=== PATIENT | female | born 1995 | race African-American/Black ===

== ENCOUNTER 2022-01-16 13:56 | Outpatient (REF) | payer MEDICAID, SELFPAY ==
--- NOTE | ~2022-01-16 | US_ITS ---
EXAMINATION: US RETROPERITONEAL LIMITED (RENAL ONLY) CLINICAL INFORMATION: Gross hematuria, left lower quadrant pain. COMPARISON: None TECHNIQUE: Real-time imaging of the kidneys. FINDINGS: RIGHT KIDNEY: 9.7 x 5.5 x 5.0 cm (SAG x AP x TRV). The kidney is normal in size, contour, and echogenicity. Renal cortical thickness is normal. No calculi or focal parenchymal lesions. No hydronephrosis. LEFT KIDNEY: 9.1 x 5.5 x 4.9 cm (SAG x AP x TRV). The kidney is normal in size, contour, and echogenicity. Renal cortical thickness is normal. No calculi or focal parenchymal lesions. No hydronephrosis. US/US renal BI IMPRESSION: Normal renal ultrasound.
== END 2022-01-16 13:57 | disposition home or self-care (01) ==
LOC: HO.US 13:56
PROVIDERS: Visit Provider Internal Medicine
DX: R31.0 Gross hematuria (principal)
CPT/HCPCS: 76775

== ENCOUNTER 2024-10-31 21:46 | Emergency (ER) | payer MEDICAID, SELFPAY ==
[2024-10-31 22:35] VITALS: BP 108/65; PULSE 96; RESP 18; TEMP 36.4; O2SAT 97; BMI 28.5
[2024-10-31] MEDS: Acetaminophen 325 MG TABLET 975 MG PO (23:01)
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
[2024-10-31 23:51] VITALS: BP 108/65; PULSE 96; RESP 18; TEMP 36.4; O2SAT 97
== END 2024-10-31 23:53 | disposition home or self-care (01) ==
PROVIDERS: Emergency Provider Emergency Medicine; PCP Internal Medicine
DX: S09.93XA Unspecified injury of face, initial encounter (principal); Y04.0XXA Assault by unarmed brawl or fight, initial encounter; Y93.F9 Activity, other caregiving; Y92.9 Unspecified place or not applicable; Y99.0 Civilian activity done for income or pay; R68.84 Jaw pain
CPT/HCPCS: 99283